=== PATIENT | male | born 1985 | race Asian ===

== ENCOUNTER 2018-02-15 09:30 | Outpatient (CLI) | payer OTHER | END 2018-02-15 19:42 | disposition home or self-care (01) | LOC: RAD 09:30 | DX: M79.641 Pain in right hand (principal); M25.551 Pain in right hip ==

== ENCOUNTER 2018-02-20 14:51 | Outpatient (CLI) | payer OTHER | END 2018-02-20 14:55 | disposition short-term general hospital (02) | LOC: AMB 14:51 | DX: F68.8 Other specified disorders of adult personality and behavior (principal) | CPT/HCPCS: A0425; A0429 ==

== ENCOUNTER 2018-02-20 14:59 | Emergency (ER) | payer OTHER ==
[~2018-02-20] VITALS: Ht 180.3 cm; Wt 94.8 kg
[2018-02-20 15:38] LABS: PLATELET COUNT 218 K/uL (142-355)
[2018-02-21 02:20] VITALS: BP 120/80; TEMP 98
== END 2018-02-21 02:20 | disposition other institution (70) ==
LOC: ED 14:59
DX: R45.851 Suicidal ideations (principal); M79.641 Pain in right hand
CPT/HCPCS: 36415; 80053; 80307; 80320; 81000; 83735; 84100; 85027; 93005; 99285

== ENCOUNTER 2018-03-17 20:40 | Emergency (ER) | payer OTHER ==
[~2018-03-17] VITALS: Ht 180.3 cm; Wt 94.8 kg
[2018-03-17] MEDS ORDERED: DIVA500T2 PO (21:20)
[2018-03-17] MEDS ORDERED: BENZ1TAB43 PO (21:20)
[2018-03-17] MEDS ORDERED: SEROQUEL50 MG PO (21:20)
[2018-03-17] MEDS ORDERED: SEROQUEL400 MG PO (21:21)
[2018-03-17 22:20] LABS: POTASSIUM 3.8 mmol/L (3.6-5.2)
[2018-03-17 22:37] LABS: PLATELET COUNT 209 K/uL (142-355)
[2018-03-18 00:53] VITALS: BP 126/80; TEMP 97.7
== END 2018-03-18 00:55 | disposition home or self-care (01) ==
LOC: ED 20:40
DX: K59.09 Other constipation (principal); K29.60 Other gastritis without bleeding
CPT/HCPCS: 36415; 80053; 81000; 82150; 83690; 83735; 85027; 99283; Q9963

== ENCOUNTER 2018-09-01 18:37 | Emergency (ER) | payer OTHER ==
[~2018-09-01] VITALS: Ht 180.3 cm; Wt 98.4 kg
[~2018-09-01 18:37] MED LIST: BENZ1TAB43 PO; DIVA500T2 PO; SEROQUEL400 MG PO; SEROQUEL50 MG PO
[2018-09-01 19:08] VITALS: BP 120/84; TEMP 97.5
== END 2018-09-01 19:08 | disposition home or self-care (01) ==
LOC: ED 18:37
DX: M25.511 Pain in right shoulder (principal); L42 Pityriasis rosea
CPT/HCPCS: 99281

== ENCOUNTER 2019-02-25 11:03 | Outpatient (CLI) | payer OTHER | END 2019-02-25 19:05 | disposition home or self-care (01) | LOC: RAD 11:03 | DX: M25.511 Pain in right shoulder (principal) ==

== ENCOUNTER 2019-03-20 12:48 | Outpatient (CLI) | payer OTHER ==
[2019-03-20] MEDS ORDERED: SEROQUEL200 MG PO (14:58)
[2019-03-20] MEDS ORDERED: BENZTROPINE2 MG PO (14:58)
[2019-03-20] MEDS ORDERED: CELEXA20 MG PO (14:58)
== END 2019-03-20 12:50 | disposition short-term general hospital (02) ==
LOC: AMB 12:48
DX: R45.851 Suicidal ideations (principal); R44.0 Auditory hallucinations
CPT/HCPCS: A0425; A0429

== ENCOUNTER 2019-03-20 12:55 | Emergency (ER) | payer OTHER ==
[~2019-03-20] VITALS: Ht 180.3 cm; Wt 98.4 kg
[2019-03-20 13:48] LABS: POTASSIUM 3.9 mmol/L (3.6-5.2)
[2019-03-20 14:11] LABS: PLATELET COUNT 206 K/uL (142-355)
[2019-03-20] MEDS ORDERED: CELEXA20 MG PO (14:58)
[2019-03-20] MEDS ORDERED: BENZTROPINE2 MG PO (14:58)
[2019-03-20] MEDS ORDERED: SEROQUEL200 MG PO (14:58)
[2019-03-20 19:00] VITALS: BP 134/76; TEMP 98.1
== END 2019-03-20 19:00 | disposition other institution (70) ==
LOC: ED 12:55
PROVIDERS: Hospitalist
DX: R45.851 Suicidal ideations (principal); R45.850 Homicidal ideations; F20.0 Paranoid schizophrenia; R44.0 Auditory hallucinations
CPT/HCPCS: 80053; 80307; 80320; 80329; 81000; 85027; 93005; 96372; 99285; J1885; J2060

== ENCOUNTER 2019-04-24 13:12 | Outpatient (CLI) | payer OTHER ==
[~2019-04-24 13:12] MED LIST changes: +BENZTROPINE2 MG PO; +CELEXA20 MG PO; +SEROQUEL200 MG PO
== END 2019-04-24 23:59 | disposition home or self-care (01) ==
LOC: RAD 13:12
DX: K59.09 Other constipation (principal)

== ENCOUNTER 2019-06-18 15:16 | Outpatient (CLI) | payer OTHER | END 2019-06-18 23:03 | disposition home or self-care (01) | LOC: RAD 15:16 | DX: M54.17 Radiculopathy, lumbosacral region (principal) ==

== ENCOUNTER 2019-11-20 13:00 | Emergency (ER) | payer OTHER ==
[~2019-11-20] VITALS: Ht 180.3 cm; Wt 98.0 kg
[2019-11-20 13:46] LABS: PLATELET COUNT 201 K/uL (142-355)
[2019-11-20 13:55] LABS: POTASSIUM 4.1 mmol/L (3.6-5.2)
[2019-11-20 19:38] VITALS: BP 131/79; TEMP 98
== END 2019-11-20 19:38 | disposition other institution (70) ==
LOC: ED 13:22
PROVIDERS: Hospitalist
DX: F20.89 Other schizophrenia (principal); R45.850 Homicidal ideations
CPT/HCPCS: 80053; 80307; 80320; 80329; 81000; 85027; 93005; 99285

== ENCOUNTER 2020-04-07 20:21 | Emergency (ER) | payer OTHER ==
[~2020-04-07] VITALS: Ht 180.3 cm; Wt 95.3 kg
[2020-04-07 21:27] LABS: POTASSIUM 4.1 mmol/L (3.6-5.2)
[2020-04-07 21:31] LABS: PLATELET COUNT 209 K/uL (142-355)
[2020-04-08 00:48] VITALS: BP 130/74; TEMP 98.2
== END 2020-04-08 00:53 | disposition home or self-care (01) ==
LOC: ED 20:21
PROVIDERS: Emergency Medicine
DX: R10.84 Generalized abdominal pain (principal)
CPT/HCPCS: 36415; 80053; 81000; 85027; 96374; 96376; 99284; J2405; Q9963

== ENCOUNTER 2020-06-08 21:18 | Emergency (ER) | payer OTHER ==
[~2020-06-08] VITALS: Ht 180.3 cm; Wt 96.2 kg
[2020-06-08 22:26] LABS: PLATELET COUNT 205 K/uL (142-355)
[2020-06-08 22:41] LABS: POTASSIUM 4.1 mmol/L (3.6-5.2)
[2020-06-08 23:40] VITALS: BP 142/87; TEMP 99.1
== END 2020-06-08 23:40 | disposition home or self-care (01) ==
LOC: ED 21:18
PROVIDERS: Emergency Medicine Emergency Medical Services
DX: N45.1 Epididymitis (principal)
CPT/HCPCS: 36415; 80053; 81000; 85027; 87490; 87590; 99283

== ENCOUNTER 2020-06-22 13:24 | Emergency (ER) | payer OTHER ==
[~2020-06-22] VITALS: Ht 180.3 cm; Wt 96.2 kg
[2020-06-22 16:01] LABS: PLATELET COUNT 220 K/uL (142-355)
[2020-06-22 16:04] LABS: POTASSIUM 4.1 mmol/L (3.6-5.2)
[2020-06-23 04:42] VITALS: BP 128/70; TEMP 98.4
== END 2020-06-23 04:42 | disposition still patient (30) ==
LOC: ED 13:24
PROVIDERS: Family Medicine
DX: R45.850 Homicidal ideations (principal); F20.89 Other schizophrenia; M51.26 Other intervertebral disc displacement, lumbar region; Z03.818 Encounter for observation for suspected exposure to other biological agents ruled out
CPT/HCPCS: 80053; 80307; 80329; 81000; 85027; 87635; 99285; U0003

== ENCOUNTER 2020-08-16 10:10 | Outpatient (CLI) | payer OTHER | END 2020-08-16 19:40 | disposition home or self-care (01) | LOC: RAD 10:10 | PROVIDERS: ATTEND Physician Assistant | DX: M25.551 Pain in right hip (principal); M25.552 Pain in left hip ==

== ENCOUNTER 2021-03-19 08:24 | Emergency (ER) | payer OTHER ==
[~2021-03-19] VITALS: Ht 180.3 cm; Wt 96.2 kg
[2021-03-19] MEDS ORDERED: SEROQUEL50 MG PO (08:51)
[2021-03-19] MEDS ORDERED: INVEGA1.5 MG PO (08:51)
[2021-03-19 09:18] LABS: PLATELET COUNT 247 K/uL (142-355)
[2021-03-20 20:43] VITALS: BP 131/79; TEMP 98.6
== END 2021-03-20 20:43 | disposition still patient (30) ==
LOC: ED 08:24
PROVIDERS: Family Medicine
DX: R45.850 Homicidal ideations (principal); F25.8 Other schizoaffective disorders; Z11.52 Encounter for screening for COVID-19
CPT/HCPCS: 36415; 80053; 80307; 80320; 80329; 81000; 85027; 87635; 93005; 96372; 99283; J1200; J1885; J2060; J3486; U0003

== ENCOUNTER 2021-04-08 20:22 | Emergency (ER) | payer OTHER ==
[~2021-04-08] VITALS: Ht 180.3 cm; Wt 96.2 kg
[~2021-04-08 20:22] MED LIST changes: +INVEGA1.5 MG PO
[2021-04-08 20:48] LABS: POTASSIUM 3.9 mmol/L (3.6-5.2)
[2021-04-08 20:56] LABS: PLATELET COUNT 208 K/uL (142-355)
[2021-04-09 11:50] VITALS: BP 122/70; TEMP 98
== END 2021-04-09 14:45 | disposition still patient (30) ==
LOC: ED 20:22
PROVIDERS: Family Medicine
DX: R45.851 Suicidal ideations (principal); R45.850 Homicidal ideations; F20.0 Paranoid schizophrenia; Z11.52 Encounter for screening for COVID-19
CPT/HCPCS: 80053; 80307; 80329; 81000; 85027; 87086; 87088; 87635; 93005; 96372; 99285; J0696; J1885; U0003

== ENCOUNTER 2021-07-16 16:01 | Emergency (ER) | payer OTHER ==
[~2021-07-16] VITALS: Ht 180.3 cm; Wt 96.2 kg
[2021-07-16 16:08] VITALS: BP 168/88; TEMP 96.8
[2021-07-16 16:38] LABS: PLATELET COUNT 220 K/uL (142-355)
[2021-07-16 16:42] LABS: POTASSIUM 3.8 mmol/L (3.6-5.2)
== END 2021-07-16 17:10 | disposition home or self-care (01) ==
LOC: ED 16:01
PROVIDERS: Emergency Medicine
DX: K29.20 Alcoholic gastritis without bleeding (principal); F19.10 Other psychoactive substance abuse, uncomplicated
CPT/HCPCS: 36415; 80053; 80307; 80320; 82150; 83690; 85027; 93005; 96374; 99284